=== PATIENT | male | born 2000 | race Caucasian/White ===

== ENCOUNTER 2023-08-02 20:37 | Emergency (ER) | payer OTHER ==
[2023-08-02] MEDS ORDERED: tiZANidine HCl 4 MG TAB ONE (21:53)
[2023-08-02] MEDS ORDERED: Morphine 4 MG/ML VIAL ONE (21:53)
[2023-08-02] MEDS ORDERED: Famotidine/PF 20 mg/2ml Vial ONE (21:53)
[2023-08-02 21:56] LABS: #Basophils 0.1 thou/uL (0.0-0.2); #Eosinphils 0.2 thou/uL (0.0-0.7); #Monocytes 0.7 thou/uL (0.11-0.59); #Neutrophils 3.7 thou/uL (1.40-6.50); %Eosinophils 2.7 % (0.0-10.0); %Lymphocytes 25.3 % (21.0-51.0); %Monocytes 11.8 % (0.0-10.0); Hematocrit 50.2 % (42.0-52.0); Hemoglobin 16.8 g/dL (14.0-18.0); Mean Corpuscular HGB CONC 33.5 g/dL (32.0-36.0); Mean Corpuscular Hemoglobin 27.8 pg (27.0-31.0); Mean Corpuscular Volume 83.1 fl (78.0-98.0); Mean Platelet Volume 9.7 fL (7.4-10.4); Platelet Count 309 10x3/uL (130-400); RBC Distribution Width 21.3 % (11.5-14.5); Red Blood Cell (RBC) Count 6.04 mill/uL (4.70-6.10); White Blood Cell (WBC) Count 6.3 10x3/uL (4.8-10.8)
[2023-08-02 22:24] LABS: ALT (SGPT) 15 U/L (8-55); AST (SGOT) 20 U/L (5-34); Alkaline Phosphatase 99 U/L (40-110); Anion Gap 15 mmol/L (10-20); BUN (Urea Nitrogen) 11 mg/dL (8.9-20.6); Bilirubin, Total 3.5 mg/dL (0.2-1.2); Calc. Creatinine Clearance 0 mL/min (70-130); Carbon Dioxide 26 mmol/L (22-29); Chloride 101 mmol/L (98-107); Estimated GFR 120; Globulin 2.7 g/dL (2.4-3.5); Glucose 90 mg/dL (70-105); Potassium 3.7 mmol/L (3.5-5.1); Protein, Total 7.7 g/dL (6.0-8.3); Sodium 138 mmol/L (136-145)
== END 2023-08-03 | disposition home or self-care (01) ==
LOC: ERS 20:37
DX: R10.9 Unspecified abdominal pain (principal); F17.200 Nicotine dependence, unspecified, uncomplicated
CPT/HCPCS: 80053; 83690; 85025; 96374; 96375; J2270; S0028

== ENCOUNTER 2023-08-17 22:09 | Observation (INO) | payer OTHER ==
[~2023-08-17 22:09] MED LIST: Iopamidol-370 76% 500 ML MDV (1 ML CHARGE) ONE
[2023-08-17] MEDS ORDERED: Ondansetron PF 4 MG/2 ML Vial ONE (22:38)
[2023-08-17 22:41] LABS: #Basophils 0.1 thou/uL (0.0-0.2); #Eosinphils 0.2 thou/uL (0.0-0.7); #Monocytes 0.4 thou/uL (0.11-0.59); #Neutrophils 3.1 thou/uL (1.40-6.50); %Basophils 1.1 % (0.0-1.0); %Lymphocytes 29.5 % (21.0-51.0); %Monocytes 8.1 % (0.0-10.0); %Neutrophils 56.9 % (42.0-75.0); Hematocrit 47.4 % (42.0-52.0); Hemoglobin 15.9 g/dL (14.0-18.0); Mean Corpuscular HGB CONC 33.5 g/dL (32.0-36.0); Mean Corpuscular Hemoglobin 28.5 pg (27.0-31.0); Mean Corpuscular Volume 85.1 fl (78.0-98.0); Mean Platelet Volume 9.5 fL (7.4-10.4); Platelet Count 248 10x3/uL (130-400); RBC Distribution Width 19.4 % (11.5-14.5); Red Blood Cell (RBC) Count 5.57 mill/uL (4.70-6.10); White Blood Cell (WBC) Count 5.5 10x3/uL (4.8-10.8)
[2023-08-17] MEDS ORDERED: Morphine 4 MG/ML VIAL ONE (22:44)
[2023-08-17 23:05] LABS: ALT (SGPT) 29 U/L (8-55); AST (SGOT) 40 U/L (5-34); Albumin 4.3 g/dL (3.5-5.0); Alkaline Phosphatase 74 U/L (40-110); Anion Gap 11 mmol/L (10-20); BUN (Urea Nitrogen) 5 mg/dL (8.9-20.6); Bilirubin, Total 1.6 mg/dL (0.2-1.2); Calc. Creatinine Clearance 0 mL/min (70-130); Calcium 9.3 mg/dL (7.8-10.44); Carbon Dioxide 26 mmol/L (22-29); Chloride 106 mmol/L (98-107); Estimated GFR 125; Globulin 2.3 g/dL (2.4-3.5); Glucose 86 mg/dL (70-105); Lipase 31 U/L (8-78); Potassium 3.9 mmol/L (3.5-5.1); Protein, Total 6.6 g/dL (6.0-8.3); Sodium 139 mmol/L (136-145)
[2023-08-17 23:52] LABS: Bilirubin Negative (Negative); Blood, Urine Negative (Negative); Clarity Clear (Clear); Glucose, Urine (Dipstick) Normal (Negative); Ketone, Urine Negative (Negative); Leukocyte Negative Leu/uL (Negative); Nitrite Negative (Negative); Protein, Urine (Dipstick) Negative (Neg-Trace); Specific Gravity, Urine 1.021 (1.002-1.036); Urobilinogen Normal mg/dL (Less than 2)
[2023-08-18 00:04] LABS: Bacteria/HPF None Seen HPF (None Seen); CAUTI Indications for Culture Pelvic or flank pain; RBC/HPF None Seen HPF (0-3); Squamous Epithelial None Seen HPF (0-3); Urine Culture Reflex No No; WBC/HPF None Seen HPF (0-3)
[2023-08-18] MEDS ORDERED: Morphine 4 MG/ML VIAL ONE (00:54)
[2023-08-18] MEDS ORDERED: Acetaminophen 325 MG TAB PO PRN ×2 (01:04→01:15)
[2023-08-18] MEDS ORDERED: Ondansetron ODT 4 MG TAB SL PRN (01:15)
[2023-08-18] MEDS ORDERED: Sodium Chloride 0.9% 1,000 ML IV SCH ×2 (01:15)
[2023-08-18] MEDS ORDERED: Ondansetron PF 4 MG/2 ML Vial IVP PRN (01:15)
[2023-08-18 01:51] LABS: Lactic Acid 0.9 mmol/L (0.5-2.2)
[2023-08-18 02:04] LABS: #Eosinphils 0.2 thou/uL (0.0-0.7); #Monocytes 0.7 thou/uL (0.11-0.59); #Neutrophils 5.5 thou/uL (1.40-6.50); %Basophils 0.5 % (0.0-1.0); %Eosinophils 2.6 % (0.0-10.0); %Lymphocytes 22.2 % (21.0-51.0); %Neutrophils 66.5 % (42.0-75.0); Hematocrit 44.7 % (42.0-52.0); Hemoglobin 14.6 g/dL (14.0-18.0); Mean Corpuscular HGB CONC 32.7 g/dL (32.0-36.0); Mean Corpuscular Hemoglobin 28.7 pg (27.0-31.0); Mean Platelet Volume 10.3 fL (7.4-10.4); Platelet Count 234 10x3/uL (130-400); Red Blood Cell (RBC) Count 5.08 mill/uL (4.70-6.10); White Blood Cell (WBC) Count 8.2 10x3/uL (4.8-10.8)
[2023-08-18 02:11] LABS: Actual Bicarbonate (HCO3v) 21.1 mEq/L (22-28); Base Excess -6.1 mEq/L (-2.0 to +3.0); Calcium, Ionized (venous) 1.16 mmol/L (1.16-1.32); Chloride (VBG) 104 mmol/L (98-106); Hematocrit-VBG 44 % (42.0-52.0); Hemoglobin (Hb) 14.9 g/dL (13.2-17.3); Potassium (VBG) 4.08 mmol/L (3.70-5.30); Sodium 139 mmol/L (133-146)
[2023-08-18 02:21] LABS: Prothrombin Time 13.4 sec (12.0-14.7)
[2023-08-18 02:22] LABS: PTT 26.8 sec (22.9-36.1)
[2023-08-18 02:38] VITALS: BMI 19.8
[2023-08-18 02:44] LABS: HBCM Index 0.06 S/CO (0-0.79); HBSAg Index 0.22 S/CO (0-0.99); Hep A IgM AB Non-Reactive S/CO (NonReactive); Hep A IgM S/CO 0.27 S/CO (0-0.79); Hep B Surf Ag Non-Reactive S/CO (NonReactive); Hep C IgG Ab Non-Reactive S/CO (NonReactive); Hep C Index 0.09 S/CO (0-0.79); Hepatitis B Core IgM Abs Non-Reactive S/CO (NonReactive)
[2023-08-18] MEDS: Morphine 4 MG/ML VIAL SLOW IVP PRN ×2 (02:48→11:48)
[2023-08-18] MEDS: Sodium Chloride 0.9% 1,000 ML IV SCH ×3 (02:49→19:32)
[2023-08-18 03:14] LABS: ALT (SGPT) 47 U/L (8-55); AST (SGOT) 61 U/L (5-34); Albumin 3.8 g/dL (3.5-5.0); Alkaline Phosphatase 66 U/L (40-110); Anion Gap 11 mmol/L (10-20); BUN (Urea Nitrogen) 7 mg/dL (8.9-20.6); Bilirubin, Total 1.3 mg/dL (0.2-1.2); Calc. Creatinine Clearance 121 mL/min (70-130); Calcium 8.3 mg/dL (7.8-10.44); Carbon Dioxide 23 mmol/L (22-29); Chloride 109 mmol/L (98-107); Estimated GFR 127; Globulin 1.8 g/dL (2.4-3.5); Glucose 80 mg/dL (70-105); Protein, Total 5.6 g/dL (6.0-8.3); Sodium 139 mmol/L (136-145)
[2023-08-18] MEDS: Ipratropium/Albuterol 3 ML NEB NEB SCH ×6 (03:33→22:23)
[2023-08-18] MEDS ORDERED: Heparin 5,000 UNITS/ML VIAL SC SCH (09:00)
[2023-08-18] MEDS: HYDROcodone/Acetaminophen 5/325 mg Tablet PO PRN ×2 (09:12→19:32)
[2023-08-18] MEDS: Famotidine 20 MG TAB PO SCH ×2 (09:12→19:32)
[2023-08-18] MEDS: Mesalamine DR 400 mg Capsule PO SCH (21:24)
[2023-08-19] MEDS: Ipratropium/Albuterol 3 ML NEB NEB SCH ×3 (02:23→10:13)
[2023-08-19] MEDS: HYDROcodone/Acetaminophen 5/325 mg Tablet PO PRN (02:42)
[2023-08-19 04:04] VITALS: TEMP 97.9
[2023-08-19 05:42] LABS: #Basophils 0.1 thou/uL (0.0-0.2); #Eosinphils 0.2 thou/uL (0.0-0.7); #Monocytes 0.4 thou/uL (0.11-0.59); #Neutrophils 2.5 thou/uL (1.40-6.50); %Basophils 1.2 % (0.0-1.0); %Eosinophils 4.1 % (0.0-10.0); %Lymphocytes 33.3 % (21.0-51.0); %Monocytes 8.7 % (0.0-10.0); %Neutrophils 52.5 % (42.0-75.0); Hematocrit 39.7 % (42.0-52.0); Hemoglobin 13.1 g/dL (14.0-18.0); Mean Corpuscular Hemoglobin 28.4 pg (27.0-31.0); Mean Corpuscular Volume 85.9 fl (78.0-98.0); Mean Platelet Volume 10.3 fL (7.4-10.4); Platelet Count 217 10x3/uL (130-400); RBC Distribution Width 19.3 % (11.5-14.5); Red Blood Cell (RBC) Count 4.62 mill/uL (4.70-6.10); White Blood Cell (WBC) Count 4.8 10x3/uL (4.8-10.8)
[2023-08-19 06:11] LABS: Anion Gap 9 mmol/L (10-20); BUN (Urea Nitrogen) 5 mg/dL (8.9-20.6); Calc. Creatinine Clearance 122 mL/min (70-130); Calcium 8.9 mg/dL (7.8-10.44); Carbon Dioxide 26 mmol/L (22-29); Chloride 108 mmol/L (98-107); Estimated GFR 127; Glucose 100 mg/dL (70-105); Magnesium 1.8 mg/dL (1.6-2.6); Potassium 3.3 mmol/L (3.5-5.1); Sodium 140 mmol/L (136-145)
[2023-08-19 07:25] VITALS: BP 116/52
[2023-08-19] MEDS ORDERED: Potassium Chloride 20 MEQ in Premix 2 BAG IVPB SCH (07:30)
[2023-08-19] MEDS ORDERED: Magnesium 2 GM/50 ML(in water) 2 GM in Premix 1 BAG IVPB SCH (08:00)
[2023-08-19] MEDS ORDERED: Potassium Chloride 20 MEQ in Premix 1 BAG IVPB SCH (08:00)
[2023-08-19] MEDS: Mesalamine DR 400 mg Capsule PO SCH (08:34)
[2023-08-19] MEDS: Famotidine 20 MG TAB PO SCH (08:34)
== END 2023-08-19 11:10 | disposition home or self-care (01) ==
LOC: ERS 22:09 → SURG A 08-18 01:02
PROVIDERS: ADMIT Internal Medicine; ATTEND Family Medicine
DX: K51.90 Ulcerative colitis, unspecified, without complications (principal); K92.1 Melena; Q43.3 Congenital malformations of intestinal fixation; R10.11 Right upper quadrant pain; R10.33 Periumbilical pain; F17.210 Nicotine dependence, cigarettes, uncomplicated
CPT/HCPCS: 36415; 74177; 76705; 80048; 80053; 80074; 81001; 82805; 83605; 83690; 83735; 84145; 85025; 85610; 85730; 86140; 87040; 94640; 96361; 96374; 96375; 96376; G0378; J2270; J2405; J3475; J7050; J7620; Q9967

== ENCOUNTER 2023-09-17 04:54 | Emergency (ER) | payer OTHER ==
[2023-09-17] MEDS ORDERED: Ketamine In 0.9 % NaCl 50 MG/5 ML SYRINGE ONE (05:19)
[2023-09-17] MEDS ORDERED: PROPOFOL 20 ML ONE (05:33)
[2023-09-17] MEDS ORDERED: EPINEPHrine 1 MG/ML VIAL ONE ×2 (05:33→06:22)
[2023-09-17] MEDS ORDERED: Famotidine/PF 20 mg/2ml Vial ONE (05:33)
[2023-09-17] MEDS ORDERED: diphenhydrAMINE 50 MG/ML VIAL ONE (05:33)
[2023-09-17] MEDS ORDERED: Ondansetron PF 4 MG/2 ML Vial ONE (05:37)
== END 2023-09-17 07:30 | disposition home or self-care (01) ==
LOC: EEVIPCON 04:54 → ERS 04:54
DX: S43.084D Other dislocation of right shoulder joint, subsequent encounter (principal); F17.210 Nicotine dependence, cigarettes, uncomplicated; X58.XXXD Exposure to other specified factors, subsequent encounter
CPT/HCPCS: 23650; 96374; 99152; 99153; J0171; J1200; J2405; J2704; J3490; S0028